=== PATIENT | male | born 1955 | race Caucasian/White ===

== ENCOUNTER → 2016-07-24 | Outpatient (CLI) | payer OTHER ==
[~2016-07-24] MED LIST: ACET-749 PO; ASPI81TA28 PO; CHOL100010 PO; CYAN10005 PO; GLUCTAB PO; HYDR25TA4 PO; LOSA50TA54 PO; LPT40 PO; MAGN1POW2 PO; MULT-513 PO; NTRGSL/4 SL; OMEG10007 PO; RANO500T PO
--- NOTE | 2016-07-24 17:00 | MYOCARDIAL PERFUSION SCAN ---
AGE: 60. STUDY REQUESTED BY: Cody Farris MD PRIMARY CARE PHYSICIAN: Vandana Valentine MD DATE OF STUDY: 07/24/2016. STUDY TITLE: One-day nuclear medicine technetium-99m Cardiolite myocardial perfusion scan. INDICATION: Shortness of breath and prior history of coronary artery disease, status post CABG. EKG: Sinus bradycardia with ventricular rate of 54. STRESS EKG: The patient exercised for 10 minutes achieving 13.4 METS and 87% maximum predicted heart rate. Blood pressure joe from 152/80 to 170/90. Exercise EKG showed [address] depressions in the inferior leads beginning at near peak exercise and extending approximately 6 minutes in the recovery. The patient had no exercise-induced chest pain and study was completed due to shortness of breath. TECHNIQUE: For the stress portion of the study, 31.8 mCi of technetium-99m Cardiolite IV was injected at 11:55 a.m. on 07/24/2016. Fifteen minutes following the injection, imaging of the heart was performed in multiple projections. For the rest portion of the study, 10.3 mCi of technetium-99m Cardiolite was injected IV at 9:30 a.m. One hour following the injection, imaging of the heart was performed in the same projections. FINDINGS: Rotating raw images were reviewed in detail. There was evidence of diaphragmatic attenuation, more notable on stress than on rest. Minimal gut uptake impacting the inferior imaging border of the heart. There was no significant pathologic extracardiac uptake. Short axis, horizontal long axis, vertical long axis images were reviewed in detail. There was no evidence of visual TID. There was a small subtle mild inferior lateral perfusion defect more notable on stress than on rest. In addition, in this area there was suggestion of a diaphragmatic shadow and findings were thought to be most consistent with diaphragmatic attenuation. LV size was normal with an end-diastolic volume of 68. LV function was normal with an EF of 70%. There was septal dyskinesis towards the apex consistent with prior bypass. IMPRESSION: 1. Normal myocardial perfusion without evidence of significant exercise-induced ischemia. Small subtle inferolateral perfusion defect, most likely due to diaphragmatic attenuation artifact. 2. Normal LV size. Normal LV function with an ejection fraction of 70% and paradoxical septal motion consistent with postoperative state. 3. Positive stress EKG with [address] depressions in the inferior leads. No exercise-induced arrhythmias. 4. Excellent functional capacity, exercised for 10 minutes achieving 13.4 METS. No exercise-induced chest pain. Due treadmill score of 5 suggesting a low risk for future adverse cardiac events.
== END | disposition home or self-care (01) ==
LOC: C.NUCL 09:02
PROVIDERS: ATTEND Internal Medicine Cardiovascular Disease
DX: I20.9 Angina pectoris, unspecified (principal); I25.10 Atherosclerotic heart disease of native coronary artery without angina pectoris; M54.2 Cervicalgia

== ENCOUNTER → 2016-09-16 | Outpatient (CLI) | payer OTHER ==
[2016-09-16 12:58] LABS: HEMATOCRIT 42.9 % (42-52); MEAN CELL VOLUME 87.2 fL (80-100); MEAN CORPUSCULAR HEMOGLOBIN 29.3 pg (25-34); MEAN CORPUSCULAR HGB CONC 33.6 g/dl (32-36); MEAN PLATELET VOLUME 11.2 fL (7.4-10.4); PLATELET COUNT 172 K/uL (130-400); RED BLOOD COUNT 4.92 M/uL (4.7-6.1); WHITE BLOOD COUNT 4.57 K/uL (4.8-10.8)
[2016-09-16 13:22] LABS: ALT/SGPT 26 U/L (12-78); AST/SGOT 21 U/L (15-37); BLOOD UREA NITROGEN 15 mg/dl (7-18); CARBON DIOXIDE 31 mmol/L (21-32); CHLORIDE 108 mmol/L (98-107); CREATININE 0.95 mg/dl (0.60-1.40); GLUCOSE 86 mg/dl (70-99); POTASSIUM 4.1 mmol/L (3.5-5.1); SODIUM 144 mmol/L (136-145)
[2016-09-16 13:25] LABS: CHOLESTEROL 193 mg/dl (0-200); HDL CHOLESTEROL 32 mg/dl; LDL CHOLESTEROL CALCULATED 140 mg/dl; TRIGLYCERIDES 107 mg/dl (0-150); VERY LOW DENSITY LIPOPROT CALC 21 mg/dl
== END | disposition home or self-care (01) ==
LOC: C.LABPBG 07:46
PROVIDERS: ATTEND Internal Medicine Cardiovascular Disease
DX: R00.1 Bradycardia, unspecified (principal); I25.10 Atherosclerotic heart disease of native coronary artery without angina pectoris; E78.5 Hyperlipidemia, unspecified; R06.09 Other forms of dyspnea; I10 Essential (primary) hypertension

== ENCOUNTER → 2016-12-19 | Outpatient (CLI) | payer OTHER ==
[2016-12-19 12:08] LABS: BASO % 0.2 %; BASO ABS # 0.01 K/uL (0-0.2); COMPLETE YES; EOS % 1.1 %; HEMATOCRIT 44.9 % (42-52); IG% 0.4 %; LYMPH % 18.4 %; LYMPH ABS # 0.85 K/uL (1.2-3.4); MEAN CELL VOLUME 86.8 fL (80-100); MEAN CORPUSCULAR HEMOGLOBIN 29.6 pg (25-34); MEAN CORPUSCULAR HGB CONC 34.1 g/dl (32-36); MEAN PLATELET VOLUME 10.9 fL (7.4-10.4); MONO % 10.4 %; NEUT % 69.5 %; PLATELET COUNT 165 K/uL (130-400); RED BLOOD COUNT 5.17 M/uL (4.7-6.1); WHITE BLOOD COUNT 4.63 K/uL (4.8-10.8)
== END | disposition home or self-care (01) ==
LOC: C.LABPBG 07:34
PROVIDERS: ATTEND Family Medicine
DX: Z11.59 Encounter for screening for other viral diseases (principal); M79.673 Pain in unspecified foot

== ENCOUNTER 2019-09-21 19:03 | Observation (INO) ==
[2019-09-21] MEDS ORDERED: ASPIRIN CHEW 324 MG PO STA (19:37)
--- NOTE | 2019-09-21 19:37 | Emergency Department Note ---
Impression & Plan Precordial chest pain, CAD, multiple vessel, SOB (shortness of breath) ED Provider Note NAME: SIM GOLDMAN AGE: 64 SEX: M : 1955 ARRIVES VIA: Walk-In INFORMANT: [Patient][family] ED PROVIDER(S): [Kana Castillo MD] CHIEF COMPLAINT: Chest pain HISTORY OF PRESENT ILLNESS: The patient is a 64-year-old male with history of 2 coronary bypasses about 4 years ago. Patient states that for the last month or so he has felt more fatigued than baseline. For a few weeks he has been short of breath with exertion. For the last few days, he has had some occasional chest pain and has noticed some nausea. Yesterday, the pain seemed to worsen with exertion. Today, he had some pain radiate to his jaw and left neck and left shoulder. The pain was a 4 out of 10. It was constant although, now, the pain seems to have gone away. The patient has not had cough or congestion. No fever or chills, no coronavirus exposures. He takes aspirin intermittently but not on a regular basis. He did not use any nitroglycerin for this pain. REVIEW OF SYSTEMS: See HPI for pertinent positives and negatives. A total of ten systems were reviewed and were otherwise negative. PMHx/PSHx: See Below SOCIAL HISTORY: See Below. PHYSICAL EXAM: GENERAL: Patient is in no acute distress. HEENT: No acute trauma, normocephalic atraumatic, mucous membranes moist, no nasal congestion, no scleral icterus. NECK: No stridor, no adenopathy, no meningismus, trachea is midline. LUNGS: Clear to auscultation bilaterally, no wheeze, no rhonchi, breath sounds equal. HEART: Without murmurs gallops or rubs, regular rate and rhythm. Chest: Nontender chest wall ABDOMEN: Soft, nontender, bowel sounds positive, no hernias, no peritonitis. EXTREMITIES: No cyanosis, mild bilateral pedal edema, full range of motion of all the joints without pain or difficulty, no signs for acute trauma. NEUROLOGIC: Oriented x 3, no acute motor or sensory deficits, no focal weakness. SKIN: No rash, no jaundice, no diaphoresis. DIFFERENTIAL DIAGNOSIS: Cardiac ischemia, aortic dissection, pulmonary embolism, pneumothorax, pneumonia, pericarditis, myocarditis, esophageal rupture, GERD, cholecystitis, pancreatitis, musculoskeletal, as well as other pathologies. EMERGENCY DEPARTMENT COURSE/PROCEDURES: ECG: Indication was chest pain. The ECG shows a sinus bradycardia with a rate of 55. There is some LVH. There is some nonspecific ST change. The QTc is 451. No ST elevation, no PVCs. Continuous Cardiac Monitoring: An order was placed for continuous cardiac monitoring. The monitor shows a rate of 49 with sinus bradycardia. MEDICAL DECISION MAKING: There is no leukocytosis or worrisome anemia. There is a normal platelet count. No coagulopathy. Renal panel testing does not show any evidence for significant electrolyte abnormality or kidney failure. No liver enzyme elev ation. Lipase is not elevated. EKG shows a sinus rhythm, no acute ischemia. Cardiac enzyme testing x1 is not consistent with acute cardiac injury. Chest film does not show pneumonia or CHF. On exam, the patient's chest wall was not tender. The patient was given oral aspirin. He is currently resting comfortably. He does not have any current chest pain. The patient presents with exertional dyspnea, precordial chest pain. He has a history of coronary disease with coronary bypass x2. Given the circumstances, given his history, I do think a hospital stay is warranted. I spoke to the patient, I talked with case management. The on-call hospitalist was consulted. Past Med/Surg History Medical History Anxiety (Chronic) CAD, multiple vessel (Chronic) Dyslipidemia (Chronic) Hypertension (Chronic) Lumbar stenosis (Chronic) Lumbosacral radiculopathy (Chronic) Osteoarthritis (Chronic) Surgical History History of tonsillectomy and adenoidectomy (Chronic) S/P CABG (coronary artery bypass graft) Family History Father Cardiac disorder Hypertension Myocardial infarction Mother Diabetes (atherosclerosis) Sister Diabetes Social History Smoking Status: Never smoker Hx Alcohol Use: No Hx Substance Use: No Preferred Language: Ecuadorean Communication Ability: Effective Visual Impairment: No Limitations Hearing Ability: Hard of Hearing marital status: Current Living Situation: Spouse current occupational status: retired Feels Safe at Home: Yes Childhood Exposure to Second-Hand Smoke: Yes Dental Care, Regularly: Yes Physical Activity Frequency: Does not Exercise Seatbelt Use: always Sunscreen Use: No Allergies Allergies Allergy/AdvReac Type Severity Reaction Status Date / Time No Known Allergies Allergy Verified 09/21/19 19:59 Home Meds Home Medications Medication Instructions Recorded Confirmed coenzyme Q10 100 mg capsule 100 mg PO BID cap 09/16/18 09/21/19 aspirin 81 mg tablet,delayed 81 mg PO DAILY 10/28/18 09/21/19 release gabapentin 300 mg capsule 300 mg PO TID PRN #270 cap 10/28/18 09/21/19 nitroglycerin 0.4 mg sublingual 0.4 mg SL Q5M PRN tab 10/28/18 09/21/19 tablet proline (bulk) 1 ea MS DIRECTED gm 10/28/18 09/21/19 acetaminophen 650 mg 650 mg PO DIRECTED PRN 11/03/18 09/21/19 tablet,extended release hawthorn phillips 565 mg capsule 565 mg PO DAILY cap 03/15/19 09/21/19 saw palmetto 500 mg capsule 500 mg PO DAILY cap 03/15/19 09/21/19 vitamin B complex 1 tab PO DAILY tab 03/15/19 09/21/19 atorvastatin [Lipitor] 20 mg PO HS 09/21/19 09/21/19 diclofenac sodium [Voltaren] 2 gm TOP QID PRN 09/21/19 09/21/19 escitalopram oxalate 20 mg PO HS 09/21/19 09/21/19 lysine 500 mg PO DAILY 09/21/19 09/21/19 Previous Rx's Medication Instructions Recorded hydrochlorothiazide 25 mg tablet 25 mg PO DAILY #90 tab 01/10/19 hydrocortisone 2.5 % topical cream 1 appln NC BID PRN #28.35 gm 09/09/19 with perineal applicator Results & Data (ED) Vital Signs Vital Signs - 24 hr 09/21/19 19:14 09/21/19 19:46 09/21/19 19:47 Temperature 36.8 C Temperature Source Oral Pulse Rate 50 L Pulse Rate [Right Finger] 49 L Respiratory Rate 16 16 Respiratory Depth Normal Normal Blood Pressure 198/94 H Blood Pressure [Right Arm] 158/91 H Blood Pressure Mean 128 Blood Pressure Mean [Right Arm] 113 Blood Pressure Position Sitting Blood Pressure Position [Right Arm] Lying Pulse Oximetry 98 98 96 Oxygen Delivery Method Room Air Room Air Room Air Oxygen Flow Rate 0 Sepsis Recent Fever Within 48 Hours No Sepsis New/Unexplained Change in Mental Status No Sepsis Action Taken by Nursing No Action Required 09/21/19 20:32 09/21/19 21:34 Temperature Temperature Source Pulse Rate Pulse Rate [Right Finger] 48 L 48 L Respiratory Rate 20 20 Respiratory Depth Blood Pressure Blood Pressure [Right Arm] 143/106 H 137/116 H Blood Pressure Mean Blood Pressure Mean [Right Arm] 118 123 Blood Pressure Position Blood Pressure Position [Right Arm] Pulse Oximetry 95 95 Oxygen Delivery Method Room Air Room Air Oxygen Flow Rate Sepsis Recent Fever Within 48 Hours Sepsis New/Unexplained Change in Mental Status Sepsis Action Taken by [facility] Medications Current Medication List: was personally reviewed by me Laboratory Data Attestation: I reviewed the patient's lab results. Result diagrams: 09/21/19 19:29 09/21/19 19:29 Lab Results 09/21/19 09/21/19 09/21/19 Range/Units 19:29 19:29 19:29 WBC 6.59 (4.8-10.8) K/uL RBC 5.13 (4.7-6.1) M/uL Hgb 15.4 (14.0-18.0) g/dL Hct 44.0 (42-52) % MCV 85.8 (80-100) fL MCH 30.0 (25-34) pg MCHC 35.0 (32-36) g/dL RDW Std Deviation 41.6 (36.4-46.3) fL RDW Coeff of Sadi 13.1 (11.5-14.5) % Plt Count 170 (130-400) K/uL MPV 10.4 (7.4-10.4) fL Immature Gran % (Auto) 0.3 % Neut % (Auto) 55.9 % Lymph % (Auto) 33.4 % [place] % (Auto) 9.0 % Eos % (Auto) 1.1 % Baso % (Auto) 0.3 % Neut # (Auto) 3.69 (1.4-6.5) K/uL Lymph # (Auto) 2.20 (1.2-3.4) K/uL [place] # (Auto) 0.59 (0.11-0.59) K/uL Eos # (Auto) 0.07 (0-0.5) K/uL Baso # (Auto) 0.02 (0-0.2) K/uL Immature Gran # (Auto) 0.02 (0.00-0.02) K/uL PT 11.4 (9.0-12.0) Seconds INR 1.1 (0.9-1.1) APTT 30.4 (21.0-31.0) Seconds PTT Ratio 1.1 Sodium 143 (136-145) mmol/L Potassium 3.8 (3.5-5.1) mmol/L Chloride 108 H (98-107) mmol/L Carbon Dioxide 29 (21-32) mmol/L Anion Gap 6.0 (3-11) BUN 21 H (7-18) mg/dl Creatinine 1.21 (0.6-1.4) mg/dl Est Cr Clr Drug Dosing 69.9 ml/min Est GFR ( Amer) 72.4 Est GFR (Non-Af Amer) 62.4 BUN/Creatinine Ratio 17.0 (10-20) Glucose 95 (70-99) mg/dl Calcium 9.2 (8.5-10.1) mg/dl Total Bilirubin 0.4 (0.2-1) mg/dl AST 23 (15-37) U/L ALT 39 (12-78) U/L Alkaline Phosphatase 104 (45-117) U/L Troponin I < 0.015 (0-0.045) ng/ml Total Protein 7.5 (6.4-8.2) gm/dl Albumin 4.1 (3.4-5.0) gm/dl Globulin 3.4 (2.5-4.0) gm/dl Albumin/Globulin Ratio 1.2 (0.9-2) Lipase 124 (73-393) U/L Administered Medications Ioversol (Optiray 320 125ml) 118 ml IV ONCE PRN PRN Reason: Interaction Checking Stop: 09/25/19 21:09 Last Admin: 09/21/19 21:11 Dose: 118 ml Documented by: [id number] Discontinued Medications Aspirin (Aspirin) 324 mg PO NOW STA Stop: 09/21/19 19:38 Last Admin: 09/21/19 19:44 Dose: 324 mg Documented by: [id number] Imaging Data Radiologist's Impression: XR chest 1V portable HISTORY: Atypical Chest Pain COMPARISON: Chest 08/05/2017. FINDINGS: The cardiac silhouette remains mildly enlarged. Poststernotomy changes. No pneumothorax. No pleural effusions. The lungs are clear. IMPRESSION: No significant change compared to the prior study. No acute process. Blood Pressure Blood Pressure Findings: Elevated blood pressure Blood Pressure Disposition: further management by hospitalist Discharge Plan Visit Data Chief Complaint: Chest Pain Stated Complaint: CHEST PAIN ED Provider: Kana Castillo Discharge Problem: Precordial chest pain, CAD, multiple vessel, SOB (shortness of breath) Patient Disposition: Admitted As Inpatient Condition: Good Forms Stand Alone Forms: [employer] [facility] [email or web address] Prescriptions Prescriptions: No Action hydrochlorothiazide 25 mg tablet 25 mg PO DAILY Qty: 90 RF: 3 hydrocortisone [Proctosol HC] 2.5 % cream with perineal applicator 1 appln NC BID PRN (Reason: hemorrhoids) Qty: 28.35 RF: 1 coenzyme Q10 100 mg capsule 100 mg PO BID RF: 0 aspirin [Adult Aspirin Regimen] 81 mg tablet,delayed release (DR/EC) 81 mg PO DAILY RF: 0 gabapentin 300 mg capsule 300 mg PO TID PRN (Reason: NEEDED) Qty: 270 RF: 0 L-Proline crystals 1 ea MS DIRECTED RF: 0 nitroglycerin 0.4 mg tablet, sublingual 0.4 mg SL Q5M PRN (Reason: chest pain) RF: 0 acetaminophen [Tylenol Arthritis Pain] 650 mg tablet extended release 650 mg PO DIRECTED PRN (Reason: Pain) RF: 0 hawthorn phillips 565 mg capsule 565 mg PO DAILY RF: 0 vitamin B complex [B Complex-Vitamin B12] Tablet 1 tab PO DAILY RF: 0 saw palmetto 500 mg capsule 500 mg PO DAILY RF: 0 lysine 500 mg Tablet 500 mg PO DAILY RF: 0 atorvastatin [Lipitor] 20 mg tablet 20 mg PO HS RF: 0 escitalopram oxalate 20 mg tablet 20 mg PO HS RF: 0 diclofenac sodium [Voltaren] 1 % gel 2 gm TOP QID PRN (Reason: Pain) RF: 0 Referrals Referrals: Vandana Valentine MD [Primary Care Provider] -
[2019-09-21 19:48] LABS: Basophils # (auto) 0.02 K/uL (0-0.2); Basophils % (auto) 0.3 %; Eosinophils # (auto) 0.07 K/uL (0-0.5); Eosinophils % (auto) 1.1 %; Hemoglobin 15.4 g/dL (14.0-18.0); Immature Granulocytes # (auto) 0.02 K/uL (0.00-0.02); Immature Granulocytes % (auto) 0.3 %; Lymphocytes % (auto) 33.4 %; Mean Corpuscular Volume 85.8 fL (80-100); Mean Platelet Volume 10.4 fL (7.4-10.4); Monocytes # (auto) 0.59 K/uL (0.11-0.59); Neutrophils # (auto) 3.69 K/uL (1.4-6.5); Neutrophils % (auto) 55.9 %; Platelet Count 170 K/uL (130-400); RDW Coefficient of Variation 13.1 % (11.5-14.5); RDW Standard Deviation 41.6 fL (36.4-46.3); Red Blood Count 5.13 M/uL (4.7-6.1); White Blood Count 6.59 K/uL (4.8-10.8)
[2019-09-21 19:56] LABS: Alanine Aminotransferase 39 U/L (12-78); Albumin Level 4.1 gm/dl (3.4-5.0); Aspartate Aminotransferase 23 U/L (15-37); Blood Urea Nitrogen 21 mg/dl (7-18); Calcium 9.2 mg/dl (8.5-10.1); Carbon Dioxide 29 mmol/L (21-32); Chloride 108 mmol/L (98-107); Creatinine Clr Calc Pharmacy 69.9 ml/min; Est GFR (African American) 72.4; Est GFR (Non-African American) 62.4; Glucose 95 mg/dl (70-99); Lipase 124 U/L (73-393); Potassium 3.8 mmol/L (3.5-5.1); Sodium 143 mmol/L (136-145)
[2019-09-21 19:59] LABS: INR 1.1 (0.9-1.1); Partial Thromboplastin Ratio 1.1; Partial Thromboplastin Time 30.4 Seconds (21.0-31.0); Prothrombin Time 11.4 Seconds (9.0-12.0)
[2019-09-21 20:01] LABS: Albumin Globulin Ratio 1.2 (0.9-2); Alkaline Phosphatase 104 U/L (45-117); Bilirubin,Total 0.4 mg/dl (0.2-1); Globulin 3.4 gm/dl (2.5-4.0); Total Protein 7.5 gm/dl (6.4-8.2); Troponin I < 0.015 ng/ml (0-0.045)
--- NOTE | 2019-09-21 20:17 | XRay Report ---
XR chest 1V portable HISTORY: Atypical Chest Pain COMPARISON: Chest 08/05/2017. FINDINGS: The cardiac silhouette remains mildly enlarged. Poststernotomy changes. No pneumothorax. No pleural effusions. The lungs are clear. IMPRESSION: No significant change compared to the prior study. No acute process. ACT 112: Negative or not required by law. Electronically signed by: Janes Baker M.D. 09/21/2019 8:16 PM
[2019-09-21] MEDS ORDERED: OPTIRAY 320 125ml IV PRN (21:10)
--- NOTE | 2019-09-21 23:21 | History & Physical Report ---
Date of Service September 21, 2019 Assessment & Plan (1) CAD, multiple vessel: Multivessel CAD/hypertension/status post CABG 4 years ago/bradycardia/precordial chest pain with occasional radiation to left side of neck and left shoulder- The patient will be admitted to telemetry for serial cardiac enzymes, serial EKG's, cardiac rhythm monitoring and a 2-D echocardiogram with Dopplers. Continue aspirin 81 mg daily and HCTZ 25 mg daily. Patient has a history of bradycardia on beta-blockers in the past, which were DC'd a while ago Patient does continue bradycardia with heart rate in the mid to upper 40s while in the ED, and he reports this is common for him at home. We will consult his rn mds Dr. Farris. Present on Admission?: Yes (2) Precordial chest pain: See above Present on Admission?: Yes (3) S/P CABG (coronary artery bypass graft): See above Present on Admission?: Yes (4) Hypertension: See above Present on Admission?: Yes (5) Stenosis of left vertebral artery: Headache/intermittent word finding deficiency- CT head was negative. CTA head and neck was significant for severe stenosis at the origin of the left vertebral artery. Patient is very claustrophobic, and will be difficult to order an MRI of brain this evening. We will consult neurology to get their opinion in the a.m., regarding how much this finding currently contribute to symptoms, and the potential for future stroke. Present on Admission?: Yes (6) Anxiety: Continue Lexapro 20 mg at bedtime Present on Admission?: Yes (7) Lumbosacral radiculopathy: Uses gabapentin 300 mg p.o. 3 times daily as needed in the outpatient setting Present on Admission?: Yes (8) Hearing difficulty: Patient is able to hear and respond if an appropriately loud voice is used Present on Admission?: Yes (9) Dyslipidemia: Continue atorvastatin 20 mg at bedtime. Patient has been intolerant of atorvastatin 80 mg. Check a fasting lipid panel Present on Admission?: Yes (10) Degenerative disc disease, cervical: When he has symptoms related to cervical DDD, it tends to be more in the middle of his neck and lower occipital area. Present on Admission?: Yes History of Present Illness Chief Complaint: The patient presents to the emergency department with complaint of chest pain with occasional radiation to left side of neck and left shoulder, persistent headache on top of head and left occipital area, and difficulty with word finding as noted by patient and his who is present. Primary Care Provider: Vandana Valentine MD The patient is a 64-year-old male with a past medical history including cervical degenerative disc disease, CAD, status post CABG, dyslipidemia, lumbosacral radiculopathy, hypertension, anxiety, hearing difficulty and history of Crabtree's palsy. The patient presents to the emergency department the above symptoms. Initial work-up in the emergency department includes a normal troponin, EKG with no acute findings and normal chest x-ray. Additional work-up included CT of the head which was negative for acute findings, CTA head and which was normal except for a severe focal stenosis of the left vertebral artery. Allergies Allergy/AdvReac Type Severity Reaction Status Date / Time No Known Allergies Allergy Verified 09/21/19 19:59 Home Medications Home Medications Medication Instructions Recorded Confirmed Type coenzyme Q10 100 mg capsule 100 mg PO BID cap 09/16/18 09/21/19 History aspirin 81 mg tablet,delayed 81 mg PO DAILY 10/28/18 09/21/19 History release gabapentin 300 mg capsule 300 mg PO TID PRN #270 cap 10/28/18 09/21/19 History nitroglycerin 0.4 mg sublingual 0.4 mg SL Q5M PRN tab 10/28/18 09/21/19 History tablet proline (bulk) 1 ea MS DIRECTED gm 10/28/18 09/21/19 History acetaminophen 650 mg 650 mg PO DIRECTED PRN 11/03/18 09/21/19 History tablet,extended release hydrochlorothiazide 25 mg tablet 25 mg PO DAILY #90 tab 01/10/19 09/21/19 Rx hawthorn phillips 565 mg capsule 565 mg PO DAILY cap 03/15/19 09/21/19 History saw palmetto 500 mg capsule 500 mg PO DAILY cap 03/15/19 09/21/19 History vitamin B complex 1 tab PO DAILY tab 03/15/19 09/21/19 History hydrocortisone 2.5 % topical cream 1 appln [place] BID PRN #28.35 gm 09/09/19 0 Rx with perineal applicator atorvastatin [Lipitor] 20 mg PO HS 09/21/19 09/21/19 History diclofenac sodium [Voltaren] 2 gm TOP QID PRN 09/21/19 09/21/19 History escitalopram oxalate 20 mg PO HS 09/21/19 09/21/19 History lysine 500 mg PO DAILY 09/21/19 09/21/19 History Past Med/Surg History Medical History Anxiety (Chronic) CAD, multiple vessel (Chronic) Dyslipidemia (Chronic) Hypertension (Chronic) Lumbar stenosis (Chronic) Lumbosacral radiculopathy (Chronic) Osteoarthritis (Chronic) Surgical History History of tonsillectomy and adenoidectomy (Chronic) S/P CABG (coronary artery bypass graft) Family History Father Cardiac disorder Hypertension Myocardial infarction Mother Diabetes (atherosclerosis) Sister Diabetes Social History Smoking Status: Unknown if ever smoked Hx Alcohol Use: No Hx Substance Use: No Preferred Language: Swazi Communication Ability: Effective Visual Impairment: No Limitations Hearing Ability: Hard of Hearing Rn Integrated Required: No Beliefs That Will Affect Care: None marital status: Current Living Situation: Spouse current occupational status: retired Other Information That Helps Us Care for You: No Feels Safe at Home: Yes Safety Concerns: Feels Safe At This Time Childhood Exposure to Second-Hand Smoke: Yes Dental Care, Regularly: Yes Physical Activity Frequency: Does not Exercise Seatbelt Use: always Sunscreen Use: No Review of Systems Review of Systems: The patient denies palpitations, shortness of breath, dyspnea on exertion, cough, lower extremity swelling, sore throat, fevers, chills, sweats, weight change, fatigue, nausea, vomiting, diarrhea , constipation, abdominal pain, pelvic pain, blood in urine or stool, dysuria, urinary frequency or urgency, memory loss, loss of consciousness, rash, abnormal bruising or bleeding, imbalance, focal or generalized weakness, numbness or tingling in arms or legs, generalized arthralgias or myalgias, or night sweats. The review of systems is otherwise negative other than for that already noted above, and at least 10 systems have been reviewed. Physical Exam Physical Exam: The patient is awake, alert and oriented 3, well developed and well nourished, normocephalic and atraumatic, lying in bed and in no acute dist ress. HEENT--PERRL, EOMI, mucous membranes and oropharynx normal. Neck--supple. No JVD. No bruits. Thyroid normal, trachea midline, no adenopathy. Heart--normal S1 and S2. No murmurs, rubs or gallops. Lungs--clear bilaterally, no respiratory distress, no accessory muscle use. Abdomen--normal bowel sounds and soft. Nontender. Nondistended. Extremities--no cyanosis or clubbing. No edema. Dermatologic--normal skin turgor, normal color, no abnormal lymph nodes, no rash. Neurologic--cranial nerves II through XII grossly intact. Rheumatologic--normal range of motion. Psychiatric--normal affect. Results & Data Results & Data ([facility]) Vital Signs (Past 12 Hours) Vital Signs Temp Pulse Pulse Resp BP BP Pulse Ox 09/21/19 23:17 45 L 20 154/88 H 95 09/21/19 22:39 47 L 20 174/90 H 97 09/21/19 21:34 48 L 20 137/116 H 95 09/21/19 20:32 48 L 20 143/106 H 95 09/21/19 19:47 49 L 16 158/91 H 96 09/21/19 19:46 98 09/21/19 19:14 98.2 F 50 L 16 198/94 H 98 Laboratory Results Laboratory Results WBC 6.59 K/uL (4.8-10.8) 09/21/19 19:29 RBC 5.13 M/uL (4.7-6.1) 09/21/19 19:29 Hgb 15.4 g/dL (14.0-18.0) 09/21/19 19: Hct 44.0 % (42-52) 09/21/19 19: MCV 85.8 fL (80-100) 09/21/19 19:29 MCH 30.0 pg (25-34) 09/21/19 19: MCHC 35.0 g/dL (32-36) 09/21/19 19: RDW Std Deviation 41.6 fL (36.4-46.3) 09/21/19 19:29 RDW Coeff of Sadi 13.1 % (11.5-14.5) 09/21/19: Plt Count 170 K/uL (130-400) 09/21/19: MPV 10.4 fL (7.4-10.4) 09/21/19: Immature Gran % (Auto) 0.3 % 09/21/19: Neut % (Auto) 55.9 % 09/21/19: Lymph % (Auto) 33.4 % 09/21/19: [place] % (Auto) 9.0 % 09/21/19: Eos % (Auto) 1.1 % 09/21/19: Baso % (Auto) 0.3 % 09/21/19 Neut # (Auto) 3.69 K/uL (1.4-6.5) 09/21/19: Lymph # (Auto) 2.20 K/uL (1.2-3.4) 09/21/19: [place] # (Auto) 0.59 K/uL (0.11-0.59) 09/21/19: Eos # (Auto) 0.07 K/uL (0-0.5) 09/21/19 Baso # (Auto) 0.02 K/uL (0-0.2) 09/21/19: Immature Gran # (Auto) 0.02 K/uL (0.00-0.02) 09/21/19: PT 11.4 Seconds (9.0-12.0) 09/21/19: INR 1.1 (0.9-1.1) 09/21/19: APTT 30.4 Seconds (21.0-31.0) 09/21/19: PTT Ratio 1.1 09/21/19: Sodium 143 mmol/L (136-145) 09/21/19 19: Potassium 3.8 mmol/L (3.5-5.1) 09/21/19: Chloride 108 mmol/L (98-107) H 09/21/19: Carbon Dioxide 29 mmol/L (21-32) 07/21/20 19:29 Anion Gap 6.0 (3-11) 09/21/19 19:29 BUN 21 mg/dl (7-18) H 09/21/19 19:29 Creatinine 1.21 mg/dl (0.6-1.4) 09/21/19 19:29 Est Cr Clr Drug Dosing 69.9 ml/min 09/21/19 19:29 Est GFR ( Amer) 72.4 09/21/19 19:29 Est GFR (Non-Af Amer) 62.4 09/21/19 19:29 BUN/Creatinine Ratio 17.0 (10-20) 09/21/19 19:29 Glucose 95 mg/dl (70-99) 09/21/19 19:29 Calcium 9.2 mg/dl (8.5-10.1) 09/21/19 19:29 Total Bilirubin 0.4 mg/dl (0.2-1) 09/21/19 19:29 AST 23 U/L (15-37) 09/21/19 19:29 ALT 39 U/L (12-78) 09/21/19 19:29 Alkaline Phosphatase 104 U/L (45-117) 09/21/19 19:29 Troponin I < 0.015 ng/ml (0-0.045) 09/21/19 19:29 Total Protein 7.5 gm/dl (6.4-8.2) 09/21/19 19:29 Albumin 4.1 gm/dl (3.4-5.0) 09/21/19 19:29 Globulin 3.4 gm/dl (2.5-4.0) 09/21/19 19:29 Albumin/Globulin Ratio 1.2 (0.9-2) 09/21/19 19:29 Lipase 124 U/L (73-393) 09/21/19 19:29 Diagnostic Findings [facility], [place] [phone] XRay Report Patient: SIM GOLDMAN Date: 09/21/19 MR#: [id number]: [address] [facility] Acct ID:[id number]: Date: [address] [place] [address] Zip: [place] [address] Age: 64Location: ED Sex: M Room/Bed: Att Phy:Diagnosis: CHEST PAIN [place] Phy: Serge Vandana S., MDService Date: 09/21/19 [facility] Phy:Interpreting Phy: Janes Baker MD Admit Phy: Ordering Phy: Kana Castillo M.D. cc: ~ XR chest 1V portable HISTORY: Atypical Chest Pain COMPARISON: Chest 08/05/2017. FINDINGS: The cardiac silhouette remains mildly enlarged. Poststernotomy changes. No pneumothorax. No pleural effusions. The lungs are clear. IMPRESSION: No significant change compared to the prior study. No acute process. ACT 112: Negative or not required by law. Electronically signed by: Janes Baker M.D. 09/21/2019 8:16 PM Dictated: 09/21/192013 Transcribed: 09/21/192013 [facility] Patient: SIM GOLDMAN (Male) : 53 Status: ER Date: 09/21/19 21:21 Room #: History: HEADACHE DIFFICULTY WITH SPEECH Slices: 58 Priors: Tech: Santiago Su @ [id number] Exams: CT HEAD Accession Numbers: [id number] Preliminary Findings Only See Final Report For Complete Findings CT HEAD: No acute intracranial hemorrhage, hydrocephalus, edema, mass effect, or acute cortical infarct. Paranasal sinuses and mastoid air cells are clear. No fracture. Radiologist: Paul Regan MD Study ready at 21:22 and initial results transmitted at 21:40 *This report constitutes a preliminary interpretation only. Non-acute findings felt to be unrelated to the clinical presentation may not be discussed in this report. The study will be interpreted and a final report will be generated by [facility] local Radiologist the following shift. To reach the hospital radiology department call [phone]. If a discrepancy is found between the preliminary and final interpretations of this study, please notify us via our Client Portal at [email or web address], under [email or web address].You can also fax this report with a description of the discrepancy, or include the final report, to our daytime fax number [phone].If faxing, please indicate the severity of discrepancy using one of the following categories: [ ] 1 - Agree/Informational [ ] 2 - Unlikely to Affect Management [ ] 3 - Possible Eventual Change of Management [ ] 4 - Probable Immediate Change of Management For all other patient related information, please fax us at [phone]. [id number] [facility] Patient: SIM GOLDMAN (Male) : 53 Status: ER Date: 09/21/19 21:22 Room #: History: HEADACHE DIFFICULTY WITH SPEECH Slices: [id number] Priors: Tech: John Sut @ [id number] Exams: CTA HEAD Contrast: IV Amt: 118 Accession Numbers: [id number] Preliminary Findings Only See Final Report For Complete Findings CTA HEAD: No arterial occlusion, high-grade stenosis, aneurysm, or dissection. Radiologist: Paul Regan MD Study ready at 21:28 and initial results transmitted at 21:42 *This report constitutes a preliminary interpretation only. Non-acute findings felt to be unrelated to the clinical presentation may not be discussed in this report. The study will be interpreted and a final report will be generated by t sheree local Radiologist the following shift. To reach the hospital radiology department call [phone]. If a discrepancy is found between the preliminary and final interpretations of this study, please notify us via our Client Portal at [email or web address], [email or web address].You can also fax this report with a description of the discrepancy, or include the final report, to our daytime fax number [phone].If faxing, please indicate the severity of discrepancy using one of the following categories: [ ] 1 - Agree/Informational [ ] 2 - Unlikely to Affect Management [ ] 3 - Possible Eventual Change of Management [ ] 4 - Probable Immediate Change of Management For all other patient related information, please fax us at [phone]. [id number] [facility] Patient: SIM GOLDMAN (Male) : 53 Status: ER Date: 09/21/19 21:24 Room #: History: HEADACHE DIFFICULTY WITH SPEECH Slices: [id number] Priors: Tech: Georges Santiago @ [id number] Exams: CTA NECK Contrast: IV Amt: 118 Accession Numbers: [id number] Preliminary Findings Only See Final Report For Complete Findings CTA NECK: The bilateral common carotid and internal carotid arteries are patent. Severe stenosis at the origin of the left vertebral artery. Right vertebral artery is patent. Radiologist: Paul Regan MD Study ready at 21:28 and initial results transmitted at 21:45 *This report constitutes a preliminary interpretation only. Non-acute findings felt to be unrelated to the clinical presentation may not be discussed in this report. The study will be interpreted and a final report will be generated by the local Radiologist the following shift. To reach the hospital radiology department call [phone]. If a discrepancy is found between the preliminary and final interpretations of this study, please notify us via our Client Portal at [email or web address], [email or web address].You can also fax this report with a description of the discrepancy, or include the final report, to our daytime fax number [phone].If faxing, please indicate the severity of discrepancy using one of the following categories: [ ] 1 - Agree/Informational [ ] 2 - Unlikely to Affect Management [ ] 3 - Possible Eventual Change of Management [ ] 4 - Probable Immediate Change of Management For all other patient related information, please fax us at [phone]. [id number] Code Status & VTE Plan Code Status Full code VTE Prophylaxis Plan VTE Prophylaxis will be ordered: Yes PG Care Time/CCT Total # of Minutes Spent Total Time Spent with Patient: Total time spent is greater than 50% in coordination of care (as documented) at patient's floor/unit and/or counseling patient: Coding Level of Care Code 95711 OBS Care - Level 3 Diagnoses CAD, multiple vessel I25.10 Precordial chest pain R07.2 S/P CABG (coronary artery bypass graft) Z95.1 Hypertension I10 Stenosis of left vertebral artery I65.02 Anxiety F41.9 Lumbosacral radiculopathy M54.17 Hearing difficulty H91.90 Dyslipidemia E78.5 Degenerative disc disease, cervical M50.30
[2019-09-21] MEDS ORDERED: ALUMINUM/MAGNESIUM SUSP 30 ML UDC PO PRN (23:35)
[2019-09-21] MEDS ORDERED: NON-FORMULARY MEDICATION (Coenzyme Q10 100 MG) PO SCH (23:35)
[2019-09-21] MEDS ORDERED: GABAPENTIN 300 MG CAP PO PRN (23:35)
[2019-09-21] MEDS ORDERED: PROLINE MS SCH (23:35)
[2019-09-21] MEDS ORDERED: ACETAMINOPHEN 325 MG TAB PO PRN (23:35)
[2019-09-21] MEDS ORDERED: NON-FORMULARY MEDICATION (Acetaminophen [Tylenol Arthritis Pain] 650 MG) PO PRN (23:35)
[2019-09-21] MEDS ORDERED: MAGNESIUM HYDROXIDE SUSP 30 ML UDC PO PRN (23:35)
[2019-09-21] MEDS ORDERED: ONDANSETRON INJ 2 MG/ML 2 ML VIAL IV PRN (23:35)
[2019-09-21] MEDS ORDERED: NITROGLYCERIN SL 0.4 MG/TAB TAB SL PRN ×2 (23:35)
--- NOTE | 2019-09-22 07:39 | CT Scan Report ---
CT ANGIOGRAM OF THE BRAIN CLINICAL HISTORY: Headache. Difficulty with speech. COMPARISON STUDY: Unenhanced CT of the brain performed concurrently on 09/21/2019. TECHNIQUE: Following the IV administration of 118 cc of Optiray 320, CT angiogram of the brain was pe rformed from the skull base to the vertex. Images are reviewed in the axial, sagittal, and coronal pl anes. 3-D MIPS images are created and assessed. IV contrast was administered without complication. A dose lowering technique was utilized adhering to the principles of ALARA. CT DOSE: 1087.02 mGy.cm FINDINGS: Brain parenchyma: The brain parenchyma is normal in appearance. There is no hemorrhage, mass effect, or evidence of acute territorial ischemia by CT criteria. There is no evidence of enhancing mass lesi on on the angiogram phase images. No extra-axial fluid collection is seen. Musa-white matter differen tiation is preserved. Ventricles, sulci, and cisterns: Normal in configuration. CT angiogram of the brain: There is atherosclerotic calcification of the cavernous carotid and verteb ral arteries. The internal carotid arteries are widely patent, as are the anterior and middle cerebra l arteries. The vertebrobasilar system and posterior cerebral arteries are widely patent. The left ve rtebral artery is dominant. There is no aneurysm, high-grade stenosis, or focal vessel cutoff identif ied throughout the intracranial circulation. Dural sinuses: Clear as visualized. Orbits: The bony orbits are intact. The orbital contents are normal as visualized. Sinuses and mastoids: The visualized paranasal sinuses are clear. The mastoid air cells are well pneu matized. Calvarium: Unremarkable. IMPRESSION: 1. There is no hemorrhage, mass effect, or evidence of acute territorial ischemia by CT criteria noti ng angiographic phase technique. 2. Unremarkable CT angiogram of the brain. ACT 112: Negative or not required by law. Electronically signed by: Kana Bain M.D. 09/22/2019 7:38 AM
[2019-09-22 07:54] LABS: INR 1.1 (0.9-1.1); Partial Thromboplastin Ratio 1.1; Partial Thromboplastin Time 30.9 Seconds (21.0-31.0); Prothrombin Time 11.8 Seconds (9.0-12.0)
--- NOTE | 2019-09-22 07:56 | CT Scan Report ---
CT angio neck with con CLINICAL HISTORY: 64 years-old Male with headache, difficulty with speech. Acute headache with str okelike symptoms COMPARISON STUDY: CT head and CTA head of same day TECHNIQUE: Following the IV administration of 118 mL of Optiray 320, CT angiogram of the neck was per formed from the aortic arch to the skull base. Images are reviewed in the axial, sagittal, and caruso l planes. 3-D MIPS images are created and assessed. IV contrast was administered without complication . All measurements were calculated based on NASCET criteria. A dose lowering technique was utilized adhering to the principles of ALARA. FINDINGS: Three-vessel morphology of aortic arch. Mild mixed plaque at the origin of the left subclavian artery without significant narrowing. The innominate artery and bilateral common carotid arteries are paten t. There is mild mixed plaque of the bilateral carotid bulbs and proximal internal carotid arteries w ithout significant stenosis. Dominant left vertebral artery. Short segment high-grade stenosis at the origin of the left vertebral artery. Calcified plaque of the V4 segment left vertebral artery results in approximately 50% stenos is. Developmentally diminutive right vertebral artery is patent. The lung apices are clear without pneumothorax. Soft tissues are unremarkable. No prevertebral soft t issue swelling. Multilevel degenerative changes of the cervical spine. No acute fracture. IMPRESSION: 1. High-grade stenosis at the origin of the left vertebral artery. 2. Mild mixed plaque of the carotid bulbs and proximal internal carotid arteries without significant stenosis. 3. Calcified plaque involving the V4 segment left vertebral artery results in 50% luminal narrowing. ACT 112: Negative or not required by law. The above report was generated using voice recognition software. It may contain grammatical, syntax o r spelling errors. Electronically signed by: Chris Oconnell M.D. 09/22/2019 7:55 AM
--- NOTE | 2019-09-22 08:00 | CT Scan Report ---
CT head/brain wo con CLINICAL HISTORY: 64 years-old Male with headache, difficulty with speech, left arm pain. Acute head ache with strokelike symptoms TECHNIQUE: Multiple axial CT images of the head were obtained without contrast. A dose lowering tech nique was utilized adhering to the principles of ALARA. COMPARISON: CTA head and neck of same day FINDINGS: No acute intracranial hemorrhage, midline shift, intracranial mass, hydrocephalus, or abnormal extra- axial collection. Cerebral vascular calcifications. Patient ill-defined hypodensity involves the post erior right frontal/parietal distribution near the vertex, image 22 series 2. Thin section images wer e subsequently submitted which shows no definite acute infarct within this distribution. No definite acute territorial infarct. The calvarium is intact. The paranasal sinuses, mastoid air cells, and middle ear cavities are clear . IMPRESSION: No acute intracranial abnormality. ACT 112: Negative or not required by law. The above report was generated using voice recognition software. It may contain grammatical, syntax o r spelling errors. Electronically signed by: Chris Oconnell M.D. 09/22/2019 7:58 AM
[2019-09-22 08:16] LABS: Albumin Level 3.9 gm/dl (3.4-5.0); BUN Creatinine Ratio 16.1 (10-20); Blood Urea Nitrogen 17 mg/dl (7-18); Calcium 9.1 mg/dl (8.5-10.1); Carbon Dioxide 30 mmol/L (21-32); Chloride 107 mmol/L (98-107); Creatinine Clr Calc Pharmacy 81.3 ml/min; Est GFR (African American) 86.9; Glucose 76 mg/dl (70-99); Magnesium 2.4 mg/dl (1.8-2.4); Potassium 3.6 mmol/L (3.5-5.1); Sodium 141 mmol/L (136-145)
[2019-09-22 08:21] LABS: Phosphorus 3.4 mg/dl (2.5-4.9); Troponin I < 0.015 ng/ml (0-0.045)
--- NOTE | 2019-09-22 08:45 | Cardiology Consultation ---
Date of Consultation September 22, 2019 Assessment & Plan (1) Precordial chest pain: (2) Neck pain: (3) CAD, multiple vessel: (4) S/P CABG (coronary artery bypass graft): (5) Dyslipidemia: (6) Hypertension: (7) Bradycardia: ASSESSMENT/PLAN: 1. Neck pain/chest pain: Symptoms are atypical for ischemic heart disease. The chest pain has been intermittently occurring chronically since bypass and is not consistent with ischemic heart disease. His neck pain lasted for several hours with negative cardiac markers. Given his medical history however a stress echo will be ordered although the likelihood that ischemia is playing a role in his presenting symptoms is low. 2. Multivessel CAD s/p CABG x 2: Atypical symptoms as above. In the past, atypical chest pain seem to correlate with emotional stress/anxiety and improved with escitalopram. Continue aspirin 81 mg daily. Continue statin therapy. Beta-joseph has been discontinued in the past due to bradycardia. 3. Hypertension: He was significantly hypertensive on presentation and remains hypertensive. Severe hypertension may have been playing a role in his symptoms. Consider ANUP-inhibitor. 4. Bradycardia: He has a history of sinus bradycardia but was noted to have appropriate chronotropic response in the past during stress testing on 07/24/2016. This will once again be evaluated with exercise stress test today. 5. Dyslipidemia: He did not tolerate atorvastatin 80 mg in the past. He is tolerating 20 mg of atorvastatin and has declined more intense statin therapy as an outpatient. 6. Disposition: Stress echo today. If stress echo is unremarkable, no further evaluation recommended as an inpatient from a cardiology perspective. Neurology has also been consulted by the primary service. Thank you for allowing me to participate in the care of your patient. Please call for any other questions or concerns. Sincerely, Chris Farris M.D. History of Present Illness Reason for Consultation: Chest pain, neck pain Requesting Physician: Dr. Nunes Attending Physician: Ramon Munoz DO History of Present Illness Mr. Grimaldo is a very pleasant 64-year-old gentleman with a history significant for CAD status post CABG x2, hypertension, and bradycardia. In the past, angina presented as exertional left neck pain with dyspnea. He has had the following studies/procedures: 1. Stress echo 11/13/2015: Negative stress echo for ischemia at 86% MPHR. Markedly abnormal exercise ECG with up to 2-[address] depressions and diffuse T-wave abnormalities. ECG changes persisted beyond 11 minutes into recovery. Exertional left neck pain reported. Hypertensive response to exercise. No arrhythmia. EF 60-65%. Normal wall motion. Type 2 diastolic dysfunction. Mild MR. 2. Cardiac catheterization 11/30/2015: 30% left main. 70% prox LAD. 60% prox LCx followed by 98% stenosis and distal 20%. 50% prox RCA, 99% mid RCA, and 100% distal RCA. Right to right collaterals and [id number] collaterals. 3. CABG x 2 12/19/15 at [facility] (Dr. Chun): GARCIA-LAD; reverse SVG- circumflex . 4. Holter monitor 02/05/2016: Sinus bradycardia with an average rate of 48 bpm. Minimum heart rate 40 bpm. Maximum heart rate 68 bpm. No significant pauses or AV block noted. Rare isolated PACs and a single couplet noted. No complex atrial arrhythmias. Very rare isolated PVCs. No complex ventricular arrhythmia. 5. Echo 04/09/2016: Normal LV size and systolic function. EF 55-60%. Normal wall motion. Mild LVH. Type 2 diastolic dysfunction. No significant valvular abnormalities. 6. Nuclear stress 07/24/2016: Normal myocardial perfusion without significant ischemia. Subtle and small inferolateral perfusion defect most likely due to diaphragmatic attenuation artifact. EF 70%. Abnormal exercise ECG with [address] depressions. No arrhythmia. Excellent functional capacity. 10 minutes on Gopal protocol. 13.4 Mets. No chest pain. He was admitted on 09/21/2023 chest pain and neck pain. Cardiology consultation was requested to help determine next step of care. He has been having atypical chest discomfort ever since his bypass surgery. He underwent myocardial perfusion study in 2017 which was negative for ischemia. This pain has occurred intermittently without trigger, often happening at rest and at times with high anxiety. It can last for hours at a time and despite this, he has not had any evidence of infarct during the symptoms. This chest discomfort which he describes today as a dull sensation has continued to occur, including yesterday when his suggested that he come to the emergency department. For the past month, he has decreased energy levels and noted a bit more dyspnea with exertion than usual. He is not certain if it has something to do with his body or the hot and humid temperatures outside. Over the past week, he has been experiencing neck pain. He points to the left side of his neck but also more in the throat area anteriorly. He states it is more of a sensation then a pain. It occurred at rest and lasted for several hours at times, including yesterday. ECG on presentation did not demonstrate any dynamic ST changes. His troponin levels have remained undetectable x3. Currently, he has no chest pain or neck pain. He denies shortness of breath, syncope, near-syncope, palpitations, or bleeding such as melena, hematochezia, or hematuria. He admits that he does feel dizzy at times, typically at rest when he wakes up in the morning following an episode of nausea. He has been more nauseated recently when he wakes up in the morning but denies vomiting. He denies abdominal pain. There was mention of difficulty finding words in admitting documentation. He states that this is a chronic issue and that there has not been any acute neurologic issues. He has not noted any edema recently however he recalls being told that he had a small amount of edema on presentation. Review of systems: As above. Family history: Father at the age of 63 with myocardial infarction. Social history: Denies tobacco, alcohol, drug abuse. and lives with his . Two children. Five grandchildren. All live locally. He lives near [place]. 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 He is alone in his hospital room. Allergies Allergy/AdvReac Type Severity Reaction Status Date / Time No Known Allergies Allergy Verified 09/21/19 19:59 Home Medications Home Medications Medication Instructions Recorded Confirmed Type coenzyme Q10 100 mg capsule 100 mg PO BID cap 09/16/18 09/21/19 History aspirin 81 mg tablet,delayed 81 mg PO DAILY 10/28/18 09/21/19 History release gabapentin 300 mg capsule 300 mg PO TID PRN #270 cap 10/28/18 09/21/19 History nitroglycerin 0.4 mg sublingual 0.4 mg SL Q5M PRN tab 10/28/18 09/21/19 History tablet proline (bulk) 1 ea MS DIRECTED gm 10/28/18 09/21/19 History acetaminophen 650 mg 650 mg PO DIRECTED PRN 11/03/18 09/21/19 History tablet,extended release hydrochlorothiazide 25 mg tablet 25 mg PO DAILY #90 tab 01/10/19 09/21/19 Rx marah phillips 565 mg capsule 565 mg PO DAILY cap 03/15/19 09/21/19 History elza ramirezo 500 mg capsule 500 mg PO DAILY cap 03/15/19 09/21/19 History vitamin B complex 1 tab PO DAILY tab 03/15/19 09/21/19 History hydrocortisone 2.5 % topical cream 1 appln NM BID PRN #28.35 gm 09/09/19 09/21/19 Rx with perineal applicator atorvastatin [Lipitor] 20 mg PO HS 09/21/19 09/21/19 History diclofenac sodium [Voltaren] 2 gm TOP QID PRN 09/21/19 09/21/19 History escitalopram oxalate 20 mg PO HS 09/21/19 09/21/19 History lysine 500 mg PO DAILY 09/21/19 09/21/19 History Patient History Medical History Anxiety (Chronic) Bradycardia CAD, multiple vessel (Chronic) Dyslipidemia (Chronic) Hypertension (Chronic) Lumbar stenosis (Chronic) Lumbosacral radiculopathy (Chronic) Osteoarthritis (Chronic) Surgical History History of tonsillectomy and adenoidectomy (Chronic) S/P CABG (coronary artery bypass graft) Family History Father Cardiac disorder Hypertension Myocardial infarction Mother Diabetes (atherosclerosis) Sister Diabetes Social History Smoking Status: Unknown if ever smoked Hx Alcohol Use: No Hx Substance Use: No Preferred Language: [place] Communication Ability: Effective Visual Impairment: No Limitations Hearing Ability: Hard of Hearing 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 Alert and oriented. HEENT: Anicteric sclera. Neck: No JVD. No bruits. Normal carotid upstrokes bilaterally. Cardiac: PMI was nondisplaced. No ventricular heave. Regular rate and rhythm. Normal S1-S2. No murmurs, rubs, or gallops. Pulmonary: Clear to auscultation bilaterally without wheezes, rales, or rhonchi. Abdomen: Soft, nontender, nondistended, with normoactive bowel sounds. No bruits noted. Extremities: 1+ right radial pulse. 2+ left radial pulse. 2+ posterior tib ialis pulses bilaterally. Trace bilateral lower extremity edema. No cyanosis. No palpable cords. Psychiatric: Affect appears appropriate. Results & Data ([facility]) Vital Signs (Past 12 Hours) Vital Signs Temp Pulse Resp BP BP Pulse Ox 09/22/19 07:36 36.4 C L 43 L 18 155/88 H 96 09/22/19 04:43 36.6 C 45 L 18 136/79 94 09/21/19 23:47 36.4 C L 94 H 18 184/104 H 94 09/21/19 23:17 45 L 20 154/88 H 95 09/21/19 22:39 47 L 20 174/90 H 97 09/21/19 21:34 48 L 20 137/116 H 95 Laboratory Results Laboratory Results - last 24 hr 09/21/19 09/21/19 09/21/19 19:29 19:29 19:29 WBC 6.59 RBC 5.13 Hgb 15.4 Hct 44.0 MCV 85.8 MCH 30.0 MCHC 35.0 RDW Std Deviation 41.6 RDW Coeff of Sadi 13.1 Plt Count 170 MPV 10.4 Immature Gran % (Auto) 0.3 Neut % (Auto) 55.9 Lymph % (Auto) 33.4 [place] % (Auto) 9.0 Eos % (Auto) 1.1 Baso % (Auto) 0.3 Neut # (Auto) 3.69 Lymph # (Auto) 2.20 [place] # (Auto) 0.59 Eos # (Auto) 0.07 Baso # (Auto) 0.02 Immature Gran # (Auto) 0.02 PT 11.4 INR 1.1 APTT 30.4 PTT Ratio 1.1 Sodium 143 Potassium 3.8 Chloride 108 H Carbon Dioxide 29 Anion Gap 6.0 BUN 21 H Creatinine 1.21 Est Cr Clr Drug Dosing 69.9 Est GFR ( Amer) 72.4 Est GFR (Non-Af Amer) 62.4 BUN/Creatinine Ratio 17.0 Glucose 95 POC Glucose Calcium 9.2 Phosphorus Magnesium Total Bilirubin 0.4 AST 23 ALT 39 Alkaline Phosphatase 104 Troponin I < 0.015 Total Protein 7.5 Albumin 4.1 Globulin 3.4 Albumin/Globulin Ratio 1.2 Lipase 124 09/22/19 09/22/19 09/22/19 00:03 07:22 07:22 WBC RBC Hgb Hct MCV MCH MCHC RDW Std Deviation RDW Coeff of Sadi Plt Count MPV Immature Gran % (Auto) Neut % (Auto) Lymph % (Auto) [place] % (Auto) Eos % (Auto) Baso % (Auto) Neut # (Auto) Lymph # (Auto) [place] # (Auto) Eos # (Auto) Baso # (Auto) Immature Gran # (Auto) PT 11.8 INR 1.1 APTT 30.9 PTT Ratio 1.1 Sodium 141 Potassium 3.6 Chloride 107 Carbon Dioxide 30 Anion Gap 5.0 BUN 17 Creatinine 1.04 Est Cr Clr Drug Dosing 81.3 Est GFR ( Amer) 86.9 Est GFR (Non-Af Amer) 75.0 BUN/Creatinine Ratio 16.1 Glucose 76 POC Glucose Calcium 9.1 Phosphorus 3.4 Magnesium 2.4 Total Bilirubin AST ALT Alkaline Phosphatase Troponin I < 0.015 < 0.015 Total Protein Albumin 3.9 Globulin Albumin/Globulin Ratio Lipase 09/22/19 07:36 WBC RBC Hgb Hct MCV MCH MCHC RDW Std Deviation RDW Coeff of Sadi Plt Count MPV Immature Gran % (Auto) Neut % (Auto) Lymph % (Auto) [place] % (Auto) Eos % (Auto) Baso % (Auto) Neut # (Auto) Lymph # (Auto) [place] # (Auto) Eos # (Auto) Baso # (Auto) Immature Gran # (Auto) PT INR APTT PTT Ratio Sodium Potassium Chloride Carbon Dioxide Anion Gap BUN Creatinine Est Cr Clr Drug Dosing Est GFR ( Amer) Est GFR (Non-Af Amer) BUN/Creatinine Ratio Glucose POC Glucose 83 Calcium Phosphorus Magnesium Total Bilirubin AST ALT Alkaline Phosphatase Troponin I Total Protein Albumin Globulin Albumin/Globulin Ratio Lipase Diagnostic Findings Telemetry personally reviewed. Telemetry: No arrhythmia. Sinus bradycardia. ECGs personally reviewed: ECG 09/21/2019: Sinus bradycardia 55 bpm. LVH. ECG 09/22/2019: Sinus bradycardia 46 bpm. No significant change from 09/21/2019 ECG. Chest x-ray 09/21/2019: No acute process per Radiology. Neck CTA 09/21/2019: High-grade stenosis at the origin of the left vertebral artery. Atherosclerosis without significant stenosis of the bilateral ICA. Head CTA 09/21/2019: No bleed. Medications Administered Current Inpatient Medications Acetaminophen (Tylenol) 650 mg PO Q4H PRN PRN Reason: Pain or Fever Stop: 10/21/19 23:34 Al Hydrox/Mg Hydrox/Simethicone (Maalox) 15 ml PO Q4H PRN PRN Reason: Dyspepsia Stop: 10/21/19 23:34 Aspirin (Ecotrin Ectab) 81 mg PO DAILY [facility] Stop: 10/22/19 08:59 Last Admin: 09/22/19 08:00 Dose: 81 mg Documented by: Atorvastatin Calcium (Lipitor) 20 mg PO HS BRAD Stop: 10/22/19 20:59 Escitalopram Oxalate (Lexapro Tab) 20 mg PO HS BRAD Stop: 10/22/19 20:59 Gabapentin (Neurontin) 300 mg PO TID PRN PRN Reason: NEEDED Stop: 10/21/19 23:34 Heparin Sodium (Porcine) (Heparin Sodium (Porcine)) 5,000 units SQ Q12 BRAD Stop: 10/22/19 08:59 Last Admin: 09/22/19 08:00 Dose: 5,000 units Documented by: Hydrochlorothiazide (Hctz) 25 mg PO DAILY BRAD Stop: 10/22/19 08:59 Last Admin: 09/22/19 07:59 Dose: 25 mg Documented by: Ioversol (Optiray 320 125ml) 118 ml IV ONCE PRN PRN Reason: Interaction Checking Stop: 09/25/19 21:09 Last Admin: 09/21/19 21:11 Dose: 118 ml Documented by: Magnesium Hydroxide (Milk Of Magnesia) 30 ml PO Q12H PRN PRN Reason: Constipation Stop: 08/20/20 23:34 Nitroglycerin (Nitrostat) 0.4 mg SL Q5M PRN PRN Reason: chest pain Stop: 10/21/19 23:34 Nitroglycerin (Nitrostat) 0.4 mg SL UD PRN PRN Reason: Chest Pain Stop: 10/21/19 23:34 Ondansetron HCl (Zofran) 4 mg IV Q6H PRN PRN Reason: Nausea Stop: 10/21/19 23:34 Vitamin B Complex (Vitamin B Complex) 1 tab PO DAILY BRAD Stop: 10/22/19 08:59 Last Admin: 09/22/19 07:59 Dose: 1 tab Documented by: PG Care Time/CCT Total # of Minutes Spent Total Time Spent with Patient: Total time spent is greater than 50% in coordination of care (as documented) at patient's floor/unit and/or counseling patient: Coding Level of Care Code 42227 Office/Outpt Visit, Est Diagnoses Precordial chest pain R07.2 Neck pain M54.2 CAD, multiple vessel I25.10 S/P CABG (coronary artery bypass graft) Z95.1 Dyslipidemia E78.5 Hypertension I10 Bradycardia R00.1
[2019-09-22] MEDS ORDERED: HAWTHORN BERRY 565 MG PO SCH (09:00)
[2019-09-22] MEDS ORDERED: ASPIRIN 81 MG ECTAB PO SCH (09:00)
[2019-09-22] MEDS ORDERED: NON-FORMULARY MEDICATION (Lysine 500 MG) PO SCH (09:00)
[2019-09-22] MEDS ORDERED: HEPARIN SOD 5,000 UNIT/0.5 ML VIAL SQ SCH (09:00)
[2019-09-22] MEDS ORDERED: NON-FORMULARY MEDICATION (Saw Palmetto 500 MG) PO SCH (09:00)
[2019-09-22] MEDS ORDERED: hydroCHLOROthiazide 25 MG TAB PO SCH (09:00)
[2019-09-22] MEDS ORDERED: VITAMIN B COMPLEX TAB PO SCH (09:00)
--- NOTE | 2019-09-22 12:31 | Electrocardiogram Report ---
Test Reason : Blood Pressure : / mmHG Vent. Rate : 055 BPM Atrial Rate : 055 BPM P-R Int : 166 ms QRS Dur : 086 ms QT Int : 472 ms P-R-T Axes : 030 -23 053 degrees QTc Int : 451 ms Sinus bradycardia Moderate voltage criteria for LVH, may be normal variant Borderline ECG When compared with ECG of 05-AUG-2017 10:37, No significant change was found Confirmed by Leonel Contreras ([id number]) on 09/22/2019 12:31:08 PM Referred By: REFERRED SELF Confirmed By:Leonel Contreras
--- NOTE | 2019-09-22 12:41 | Electrocardiogram Report ---
Test Reason : Blood Pressure : / mmHG Vent. Rate : 046 BPM Atrial Rate : 046 BPM P-R Int : 182 ms QRS Dur : 088 ms QT Int : 502 ms P-R-T Axes : 044 -13 056 degrees QTc Int : 439 ms Sinus bradycardia Otherwise normal ECG When compared with ECG of 21-SEP-2019 19:25, (unconfirmed) No significant change was found Confirmed by Leonel Contreras ([id number]) on 09/22/2019 12:41:05 PM Referred By: REFERRED SELF Confirmed By:Leonel Contreras
--- NOTE | 2019-09-22 14:01 | Neurology Consultation ---
Date of Consultation September 22, 2019 Assessment & Plan (1) Cervicogenic headache: Bora Grmialdo is a 64yo man w/ PMH of HTN, HLD, anxiety, CAD s/p CABG, and lumbar/cervical DJD who p/t [facility] for chest pain a/w neck pain and headache. # Suspected cervicogenic headache with tension type component: long history of similar headaches that worsened in frequency/severity after fall last year -Recommend obtaining MRI brain with and without contrast to rule out posterior fossa tumor, Chiari or cervical lesion as cause of symptoms -If MRI unremarkable, recommend that he start physical therapy as an outpatient and consider either duloxetine or venlafaxine for symptomatic treatment -Given his cardiac history, he should avoid NSAIDs if possible. Tylenol as needed would be preferred #Right vertebral artery stenosis: Unlikely to be the cause of symptoms. He denies any positional component to the dizziness or other changes that you would see with vertebrobasilar insufficiency. Describes having bilateral numbness that sounds more consistent with either carpal tunnel syndrome or possible syrinx if there is a Chiari found on MRI. -Advised him to start aspirin 81 mg daily, continue home atorvastatin 20 mg daily -Discussed with him that usually there is no treatment for this outside of maximal medical therapy. Thank you for this interesting consult. Plan of care discussed with primary team. Please call or text with questions. (2) Tension type headache: (3) Neck pain: (4) Stenosis of left vertebral artery: (5) Degenerative disc disease, cervical: History of Present Illness Attending Physician: Ramon Munoz, History of Present Illness Bora Grimaldo is a 64yo man w/ PMH of HTN, HLD, anxiety, CAD s/p CABG, and lumbar/cervical DJD who p/t [facility] for chest pain a/w neck pain and headache. He reports that he has a long history of headaches that started when he was in his 20s. Prior headaches were occipital in nature and also is left-sided with radiation from the neck and occiput up into the frontal lobe. These are associated with nausea but no photophobia/phonophobia or other symptoms. They would usually respond to yhdh-kpt-diaavpo such as Tylenol or naproxen. He reports that since he fell off a ladder last year, he has started to have more neck pain and headaches have become bilateral occipital in location, associated with nausea and occasional internal dizziness. They would usually respond to an uuba-sif-kqcupim such as Tylenol or naproxen. Labs in the ED showed WBC 6.59, hemoglobin 15.4, platelets 170, INR 1.1, electrolytes within normal, creatinine 1.21, glucose 95, calcium 9.2, troponin negative, LFTs within normal. CT head showed no hemorrhage or hypodensity. CTA head and neck showed mild diffuse intracranial atherosclerosis, moderate to severe stenosis of the right vertebral artery at the origin, hypoplastic right vertebral artery, no other LVO, high-grade stenosis or aneurysm. He is on aspirin 81 mg daily at home, as well as atorvastatin 20 mg daily and coenzyme Q 10. He does take several supplements at home that are known to increased risk of headache including [facility] phillips and saw palmetto. He did not endorse having any issues with word finding difficulties specifically the more recent headaches, but did endorse having nausea and sensation of internal dizziness. He has had a previous cervical x-ray in January 2019 that showed mild to moderate spondylitic spurring at multiple levels, moderate to severe facet arthrosis, degenerative changes with neuroforaminal narrowing most severe at the right C3/C4 and C4/C5. He has not completed physical therapy in the past, but has tried gabapentin 300 mg tid without much improvement of his occipital headache. He denies ever having an MRI brain for this in the past given significant claustrophobia. Endorses having bilateral hand numbness and tingling provoked by bending his arms or certain positions when he is sleeping. Has baseline right foot numbness after prior back surgery for sciatica. Denies any symptoms consistent with vertebrobasilar TIA or subclavian steal syndrome. Allergies Allergy/AdvReac Type Severity Reaction Status Date / Time No Known Allergies Allergy Verified 09/21/19 19:59 Home Medications Home Medications Medication Instructions Recorded Confirmed Type coenzyme Q10 100 mg capsule 100 mg PO BID cap 09/16/18 09/21/19 History aspirin 81 mg tablet,delayed 81 mg PO DAILY 10/28/18 09/21/19 History release gabapentin 300 mg capsule 300 mg PO TID PRN #270 cap 10/28/18 09/21/19 History nitroglycerin 0.4 mg sublingual 0.4 mg SL Q5M PRN tab 10/28/18 09/21/19 History tablet proline (bulk) 1 ea MS DIRECTED 10/28/18 09/21/19 History acetaminophen 650 mg 650 mg PO DIRECTED PRN 11/03/18 09/21/19 History tablet,extended release hydrochlorothiazide 25 mg tablet 25 mg PO DAILY #90 tab 01/10/19 09/21/19 Rx marah phillips 565 mg capsule 565 mg PO DAILY cap 03/15/19 09/21/19 History saw palmetto 500 mg capsule 500 mg PO DAILY cap 03/15/19 09/21/19 History vitamin B complex 1 tab PO DAILY tab 03/15/19 09/21/19 History hydrocortisone 2.5 % topical cream 1 appln LA BID PRN #28.35 gm 09/09/19 09/21/19 Rx with perineal applicator atorvastatin [Lipitor] 20 mg PO HS 09/21/19 09/21/19 History diclofenac sodium [Voltaren] 2 gm TOP QID PRN 09/21/19 09/21/19 History escitalopram oxalate 20 mg PO HS 09/21/19 09/21/19 History lysine 500 mg PO DAILY 09/21/19 09/21/19 History Patient History Medical History Anxiety (Chronic) Bradycardia CAD, multiple vessel (Chronic) Dyslipidemia (Chronic) Hypertension (Chronic) Lumbar stenosis (Chronic) Lumbosacral radiculopathy (Chronic) Osteoarthritis (Chronic) Surgical History History of tonsillectomy and adenoidectomy (Chronic) S/P CABG (coronary artery bypass graft) Family History Father Cardiac disorder Hypertension Myocardial infarction Mother Diabetes (atherosclerosis) Sister Diabetes Social History Smoking Status: Unknown if ever smoked Hx Alcohol Use: No Hx Substance Use: No Preferred Language: German Communication Ability: Effective Visual Impairment: No Limitations Hearing Ability: Hard of Hearing Powder Line Repairer Required: No Beliefs That Will Affect Care: None marital status: Current Living Situation: Spouse current occupational status: retired Other Information That Helps Us Care for You: No Feels Safe at Home: Yes Safety Concerns: Feels Safe At This Time Childhood Exposure to Second-Hand Smoke: Yes Dental Care, Regularly: Yes Physical Activity Frequency: Does not Exercise Seatbelt Use: always Sunscreen Use: No Review of Systems Review of Systems: 14 point review of systems completed and negative except as in HPI. Exam (Neuro) Physical Exam: General Exam: GEN: NAD, sitting in chair. HEENT: No conjunctival injection, no rhinorrhea. CV: RRR, no peripheral edema PULM: Nonlabored respirations on room air. Neuro Exam: MS: Awake and Alert. Oriented to person, place, and date. Speech fluent and appropriate without dysarthria or paraphasic errors. Language intact including naming, comprehension, repetition. Cognition and memory grossly intact. Attention intact. No neglect. CN: Visual naylor full. No extinction to double simultaneous stimuli. No optic disc edema on fundoscopic exam. PERRLA OU. EOMI without nystagmus. Facial sensation intact to LT. Facial muscles full and symmetric. Hearing intact to conversation. Uvula midline with symmetric palatal elevation. Shoulder shrug normal. Tongue midline. MOTOR: Normal bulk and tone. No pronator drift. BUE strength 5/5 at deltoids, biceps, triceps, wrist flexors and extensors, and hand grasp bilaterally. BLE strength 5/5 at iliopsoas, hamstrings, quadriceps, tibialis anterior, and gastrocnemius bilaterally. REFLEXES: 1+ at biceps, triceps, brachioradialis, 1+ patella and trace Achilles bilaterally. Flexor plantar responses bilaterally. SENSORY: Intact to LT without extinction to double simultaneous stimuli. V ibration and pinprick intact throughout, except for diminished in right foot COORDINATION: No dysmetria or ataxia on caebii-zt-oyqf bilaterally. Normal Didier bilaterally. GAIT: Gait deferred due to physical status Results & Data ([facility]) Vital Signs (Past 12 Hours) Vital Signs Temp Pulse Resp BP BP Pulse Ox 09/22/19 12:12 36.6 C 44 L 20 132/80 95 09/22/19 07:36 36.4 C L 43 L 18 155/88 H 96 09/22/19 04:43 36.6 C 45 L 18 136/79 94 PG Care Time/CCT Total # of Minutes Spent Total Time Spent with Patient: Total time spent is greater than 50% in coordination of care (as documented) at patient's floor/unit and/or counseling patient: Coding Level of Care Code 04312 Initial Inpt Care Lvl 3 Diagnoses Cervicogenic headache R51 Tension type headache G44.209 Neck pain M54.2 Stenosis of left vertebral artery I65.02 Degenerative disc disease, cervical M50.30
--- NOTE | 2019-09-22 15:05 | XCELERA ---
[id number] \\[id number]
[2019-09-22] MEDS ORDERED: LORazepam 1 MG TAB PO STA (15:55)
--- NOTE | 2019-09-22 17:32 | Discharge Summary ---
Date of Service September 22, 2019 Admission HPI Per Admitting Provider The patient is a 64-year-old male with a past medical history including cervical degenerative disc disease, CAD, status post CABG, dyslipidemia, lumbosacral radiculopathy, hypertension, anxiety, hearing difficulty and history of Crabtree's palsy. The patient presents to the emergency department the above symptoms. Initial work-up in the emergency department includes a normal troponin, EKG with no acute findings and normal chest x-ray. Additional work-up included CT of the head which was negative for acute findings, CTA head and which was normal except for a severe focal stenosis of the left vertebral artery. Admission Exam Per Admitting Provider The patient is awake, alert and oriented 3, well developed and well nourished, normocephalic and atraumatic, lying in bed and in no acute distress. HEENT--PERRL, EOMI, mucous membranes and oropharynx normal. Neck--supple. No JVD. No bruits. Thyroid normal, trachea midline, no adenopathy. Heart--normal S1 and S2. No murmurs, rubs or gallops. Lungs--clear bilaterally, no respiratory distress, no accessory muscle use. Abdomen--normal bowel sounds and soft. Nontender. Nondistended. Extremities--no cyanosis or clubbing. No edema. Dermatologic--normal skin turgor, normal color, no abnormal lymph nodes, no rash. Neurologic--cranial nerves II through XII grossly intact. Rheumatologic--normal range of motion. Psychiatric--normal affect. Principal Diagnosis chest pain headache Discharge Exam Constitutional well developed and well nourished; no acute distress ENMT external ear and nose normal, oropharynx normal Neck normal visual inspection Respiratory normal respiratory effort, lungs clear to auscultation Cardiovascular RRR, no murmur, no edema Vessels: no carotid bruit Extremities: no edema Gastrointestinal (Abdomen) normal bowel sounds, soft, nontender, no hepatosplenomegaly Skin no rashes, warm and dry Discharge Data Allergies Allergy/AdvReac Type Severity Reaction Status Date / Time No Known Allergies Allergy Verified 09/21/19 19:59 Consultations 09/21/19 20:21 ED Decision to Admit Stat 09/21/19 23:35 Consult Cardiology Routine Consult Case Management - Discharge Planning Routine Consult Neurology Routine 09/22/19 17:02 Consult Case Management - Discharge Planning Routine Ordered Studies 09/21/19 20:56 CT head/brain wo con Urgent 09/21/19 20:59 CT angio head w con Urgent CT angio neck with con Urgent 09/22/19 15:00 MRI Brain [MR brain wo/w con] Routine Hospital Course (1) Chest pain: CAD, multiple vessel s/p CABG presenting with precordial chest pain Multivessel CAD/hypertension/status post CABG 4 years ago/bradycardia/precordial chest pain with occasional radiation to left side of neck and left shoulder. The patient was admitted to telemetry for serial cardiac enzymes (negative X3), stress echo normal - Continue aspirin 81 mg daily and HCTZ 25 mg daily. - Patient has a history of bradycardia on beta-blockers in the past, which were DC'd a while ago - Patient does continue bradycardia with heart rate in the mid to upper 40s during admission, and he reports this is common for him at home. - consulted pediatric physical therapist Dr. Farris, who felt that his chest pain was not consistent with cardiac ischemia Stenosis of left vertebral artery w/ headache/intermittent word finding deficiency as well as dizziness CT head was negative. CTA head and neck was significant for severe stenosis at the origin of the left vertebral artery. - consulted neurology to determine how much this finding currently contribute to symptoms, and the potential for future stroke. - neurology recommended MRI which is being coordinated as an outpatient to determine if his headache and dizziness are due to a mass not seen on CT - Patient is very claustrophobic Anxiety: - Continued home Lexapro 20 mg at bedtime, discharged on same Lumbosacral radiculopathy: - continue gabapentin 300 mg p.o. 3 times daily as needed in the outpatient setting Dyslipidemia: - Continue atorvastatin 20 mg at bedtime. - Patient has been intolerant of atorvastatin 80 mg. Degenerative disc disease, cervical: - When he has symptoms related to cervical DDD, it tends to be more in the middle of his neck and lower occipital area. Total Time Total Time Spent Total Time Spent (In Minutes): <30 Discharge Plan Discharge Items Patient Disposition: Home - Self-Care Reason For Visit: CHEST PAIN,HEADACHE,JAW AND ARM PAIN,BRADYCARDIA,L Discharge Diagnosis: chest pain Condition on Discharge: Good Activity: Per Instructions section Non-emergency contact: Primary Care Provider and Dental Ceramist Assistant Call non-emergency contact if: your symptoms worsen Follow-up/Referrals: Vandana Valentine MD [Primary Care Provider] - Diet: Regular Addtl Attending Provider Instructions: Chest pain You had chest pain that brought you to the hospital. Cardiology saw you and per formed a stress test to evaluate your chest pain. The stress test was normal without changes seen on EKG. We josr labs that look at damage to the heart (troponin)and you were found to have normal values on serial exams. Cardiology thought that the chest pain was not consistent with ischemic heart disease. There are several other causes of chest pain including anxiety, reflux, and musculoskeletal causes. It will be important to further evaluate the causes of your chest pain with your primary doctor. It will also be important to continue your medications for your heart including aspirin, and your statin. If you have a change or worsening of your chest pain we will want to have you call or come in to get evaluated. Headache and dizziness You were experiencing a headache and dizziness and we had neurology see you when you were in the hospital. Neurology wanted an MRI to further evaluate any potential causes for your symptoms, we can have this arranged as an outpatient. You should have someone call you to schedule the appointment. Follow up You will need to follow up with your primary care doctor in the next 7 days to review your hospitalization to discuss and further evaluate you for the symptoms that brought you to the hospital. Return precautions If you are having continued chest pain that is associated with activity we would want you to call or come in. Pending Studies at Discharge: No Stand-Alone Forms: My [facility] [employer], Smoking Cessation Medications and DC Order Prescriptions: New lorazepam [Ativan] 1 mg tablet 1 mg PO UD Qty: 2 RF: 0 Continued hydrochlorothiazide 25 mg tablet 25 mg PO DAILY Qty: 90 RF: 3 hydrocortisone [Proctosol HC] 2.5 % cream with perineal applicator 1 appln TN BID PRN (Reason: hemorrhoids) Qty: 28.35 RF: 1 coenzyme Q10 100 mg capsule 100 mg PO BID RF: 0 aspirin [Adult Aspirin Regimen] 81 mg tablet,delayed release (DR/EC) 81 mg PO DAILY RF: 0 gabapentin 300 mg capsule 300 mg PO TID PRN (Reason: NEEDED) Qty: 270 RF: 0 L-Proline crystals 1 ea MS DIRECTED RF: 0 nitroglycerin 0.4 mg tablet, sublingual 0.4 mg SL Q5M PRN (Reason: chest pain) RF: 0 acetaminophen [Tylenol Arthritis Pain] 650 mg tablet extended release 650 mg PO DIRECTED PRN (Reason: Pain) RF: 0 hawthorn phillips 565 mg capsule 565 mg PO DAILY RF: 0 vitamin B complex [B Complex-Vitamin B12] Tablet 1 tab PO DAILY RF: 0 saw palmetto 500 mg capsule 500 mg PO DAILY RF: 0 lysine 500 mg Tablet 500 mg PO DAILY RF: 0 atorvastatin [Lipitor] 20 mg tablet 20 mg PO HS RF: 0 escitalopram oxalate 20 mg tablet 20 mg PO HS RF: 0 diclofenac sodium [Voltaren] 1 % gel 2 gm TOP QID PRN (Reason: Pain) RF: 0 Discharge Orders: Discharge Order (Routine); Ordered 09/22/19 Ordered By: Heath Coffman Admission Data Admit Date/Time: 09/21/19 22:39 Attending Provider: Ramon Munoz Admit Provider: Kenan Nunes Primary Care Provider: Vandana Valentine Other Providers: Kenan Nunes ; Cody Farris ; Zan Fair Other Interventions: Discharge Summary Assessment (RN) Last Done: 09/22/19 17:57 DC Date/Time DO NOT enter until pt leaves facility: 09/22/19 18:26 Supervising Physician Co-Signing Physician Notes I personally examined the patient and verified all swartz points of history and exam, discussed case, and agree with decision making with Dr Coffman. feeling better would like to go home. discussed MRI and rationale for getting - he notes that since he hasn't gotten it done yet, he would prefer to have it done as an outpt - notes quite claustrophobic though - discussed pretreat wtih ativan discussed having drive, etc. wonders if CP could have been stress related vitals noted nad heent nc at mmm no suboccipital tenderness does have anterior chest wall tenderness although it is different than what he was feeling. no focal neuro deficits chest pain - noncardiac. possibly stress related vs MSK. either way stable for home headaches - for MRI - but given delays he would prefer to do as outpt - which is reasonable. will send Rx for ativan for claustrophobia CBC Results Results Complete Blood Count Results: RBC 5.13 M/uL (4.7-6.1) 09/21/19 WBC 6.59 K/uL (4.8-10.8) 09/21/19 Hgb 15.4 g/dL (14.0-18.0) 09/21/19 Hct 44.0 % (42-52) 09/21/19 Plt Count 170 K/uL (130-400) 09/21/19 Results BMP Results: Sodium 141 mmol/L (136-145) 09/22/19 Potassium 3.6 mmol/L (3.5-5.1) 09/22/19 Chloride 107 mmol/L (98-107) 09/22/19 BUN 17 mg/dl (7-18) 09/22/19 Creatinine 1.04 mg/dl (0.6-1.4) 09/22/19 Glucose 76 mg/dl (70-99) 09/22/19 Resident Activity Tracking Resident Involvement: Resident Care Provided Care Provided: Adult [facility]
--- NOTE | 2019-09-22 19:14 | Billing Data ---
Date of Service September 22, 2019 Coding Level of Care Code 80146 OBS Care - Discharge
[2019-09-22] MEDS ORDERED: ATORVASTATIN 20 MG TAB PO SCH (21:00)
[2019-09-22] MEDS ORDERED: ESCITALOPRAM OXALATE 20 MG TAB PO SCH (21:00)
== END 2019-09-22 18:26 | disposition home or self-care (01) ==
LOC: ED 19:03 → 2S 19:03 → SUATTDRO 22:39 → 2S 23:19